=== PATIENT | male | born 1940 | race Caucasian/White ===

== ENCOUNTER 2017-12-14 03:32 | Emergency (ER) | payer MEDICARE ==
[~2017-12-14] VITALS: Ht 175.3 cm; Wt 97.1 kg
[2017-12-14 03:38] VITALS: BP_SYST 141
[2017-12-14 04:32] LABS: BASOPHILS % (AUTO) 0.6 % (0.0-2.0); EOSINOPHILS # (AUTO) 0.3 K/uL (0.0-0.4); EOSINOPHILS % (AUTO) 3.8 % (0.0-4.0); HEMATOCRIT 30.4 % (36-54); HEMOGLOBIN 10.1 g/dL (14.0-18.0); LYMPHOCYTES # (AUTO) 1.2 K/uL (1.0-5.5); LYMPHOCYTES % (AUTO) 15.5 % (20.5-51.5); MEAN CORPUSCULAR HEMOGLOBIN 30 pg (27-31); MEAN CORPUSCULAR HGB CONC 33 % (32-36); MEAN CORPUSCULAR VOLUME 91 fL (79.0-98.0); MONOCYTES # (AUTO) 0.9 K/uL (0.0-1.0); MONOCYTES % (AUTO) 12.3 % (1.7-9.3); NEUTROPHILS # (AUTO) 5.1 K/uL (1.8-7.7); NEUTROPHILS % (AUTO) 67.8 % (40.0-70.0); PLATELET COUNT (AUTO) 196 K/uL (130-430); RED BLOOD CELL COUNT(AUTO) 3.36 MIL/uL (4.2-6.2); RED CELL DISTRIBUTION WIDTH 13.6 % (9.0-15.0); WHITE BLOOD COUNT (AUTO) 7.5 K/uL (4.8-10.8)
[2017-12-14 04:42] LABS: ANION GAP 7 (5-15); CALCIUM 8.4 mg/dL (8.4-11.0); CHLORIDE 103 mmol/L (98-107); CREATININE 0.71 mg/dL (0.55-1.30); GLUCOSE 107 mg/dL (70-99); POTASSIUM 3.5 mmol/L (3.5-5.1); SODIUM SERUM 137 mmol/L (136-145); UREA NITROGEN, BLOOD 20 mg/dL (8-21)
[2017-12-14 04:47] LABS: ALANINE AMINOTRANSFERASE 20 U/L (12-78); ALBUMIN 2.9 g/dL (3.4-4.8); ASPARTATE AMINOTRANSFERASE 19 U/L (10-37); TOTAL BILIRUBIN 0.5 mg/dL (0.0-1.0)
[2017-12-14 05:11] LABS: PROTHROMBIN TIME 9.7 SECS (9.5-12.5)
[2017-12-14 05:14] LABS: BILIRUBIN,URINE NEGATIVE (NEGATIVE); BLOOD, URINE TRACE (NEGATIVE); CLARITY/URINE CLEAR (CLEAR); COLOR,URINE YELLOW (YELLOW); GLUCOSE,URINE NEGATIVE (NEGATIVE); KETONES,URINE NEGATIVE (NEGATIVE); LEUKOCYTE ESTERASE ,URINE NEGATIVE (NEGATIVE); NITRITE, URINE NEGATIVE (NEGATIVE); PROTEIN URINE NEGATIVE (NEGATIVE)
[2017-12-14 05:36] LABS: BACTERIA,URINE RARE /HPF (None Seen); MUCUS,URINE None Seen /LPF (None Seen); WBC,URINE 0-3 /HPF (0-3); YEAST,URINE None Seen /HPF (None Seen)
[2017-12-14 05:48] VITALS: BP_SYST 141
== END 2017-12-14 05:48 | disposition short-term general hospital (02) ==
LOC: SED 03:32
DX: G89.18 Other acute postprocedural pain (principal); M96.831 Postprocedural hemorrhage of a musculoskeletal structure following other procedure; I10 Essential (primary) hypertension; Z86.79 Personal history of other diseases of the circulatory system; Z96.652 Presence of left artificial knee joint
CPT/HCPCS: 36415; 80053; 81000-TC; 85025; 85610-TC; 85730-TC; 99285

== ENCOUNTER 2018-09-13 07:51 | Emergency (ER) | payer MEDICARE ==
[~2018-09-13] VITALS: Ht 175.3 cm; Wt 97.1 kg
[2018-09-13 07:57] VITALS: BP_SYST 157
[2018-09-13] MEDS ORDERED: NACL 0.9% 1,000 ML IV ONE (08:30)
[2018-09-13 08:45] LABS: BASOPHILS # (AUTO) 0.1 K/uL (0.0-0.2); BASOPHILS % (AUTO) 0.4 % (0.0-2.0); HEMATOCRIT 38.4 % (36-54); HEMOGLOBIN 12.9 g/dL (14.0-18.0); LYMPHOCYTES # (AUTO) 0.5 K/uL (1.0-5.5); LYMPHOCYTES % (AUTO) 3.3 % (20.5-51.5); MEAN CORPUSCULAR HEMOGLOBIN 30 pg (27-31); MEAN CORPUSCULAR HGB CONC 34 % (32-36); MEAN CORPUSCULAR VOLUME 90 fL (79.0-98.0); NEUTROPHILS # (AUTO) 14.8 K/uL (1.8-7.7); NEUTROPHILS % (AUTO) 90.3 % (40.0-70.0); PLATELET COUNT (AUTO) 178 K/uL (130-430); RED BLOOD CELL COUNT(AUTO) 4.25 MIL/uL (4.2-6.2); RED CELL DISTRIBUTION WIDTH 14.6 % (9.0-15.0); WHITE BLOOD COUNT (AUTO) 16.4 K/uL (4.8-10.8)
[2018-09-13 08:57] LABS: ANION GAP 9 (5-15); CALCIUM 8.9 mg/dL (8.4-11.0); CHLORIDE 100 mmol/L (98-107); CREATININE 0.81 mg/dL (0.55-1.30); GLUCOSE 113 mg/dL (70-99); POTASSIUM 4.1 mmol/L (3.5-5.1); SODIUM SERUM 135 mmol/L (136-145); UREA NITROGEN, BLOOD 17 mg/dL (8-21)
[2018-09-13 09:03] LABS: ALANINE AMINOTRANSFERASE 25 U/L (12-78); ALBUMIN 3.2 g/dL (3.4-4.8); ASPARTATE AMINOTRANSFERASE 29 U/L (10-37); TOTAL BILIRUBIN 1.5 mg/dL (0.0-1.0)
[2018-09-13 09:16] LABS: INR 1.1 (0.80-1.20); PROTHROMBIN TIME 11.1 SECS (9.5-12.5)
[2018-09-13] MEDS ORDERED: IOHEXOL 350 mgI/mL, 150 ML INFUS..BTL IV ONE (09:21)
[2018-09-13] MEDS ORDERED: cefTRIAXone 1 GM in D5W 50 ML IV ONE (11:00)
[2018-09-13] MEDS ORDERED: AZITHROMYCIN 500 MG in NS 250 ML IV ONE (11:00)
[2018-09-13] MEDS ORDERED: AZITHROMYCIN 500 MG/VIAL (ZITHROMAX) IV ONE (11:15)
[2018-09-13] MEDS ORDERED: cefTRIAXone 1 GM VIAL ONE (11:16)
[2018-09-13] MEDS ORDERED: OMEP20CA10 PO (11:47)
[2018-09-13] MEDS ORDERED: TYC3 PO (11:47)
[2018-09-13] MEDS ORDERED: NITSL SL (11:47)
[2018-09-13] MEDS ORDERED: ASPI-1153 PO (11:47)
[2018-09-13] MEDS ORDERED: DICL100G19 TP (11:47)
[2018-09-13] MEDS ORDERED: ALBMDI INH (11:47)
[2018-09-13] MEDS ORDERED: PRO10 PO (11:47)
[2018-09-13] MEDS ORDERED: FLUT16SP16 NS (11:47)
[2018-09-13] MEDS ORDERED: METO25TA6 PO (11:47)
[2018-09-13] MEDS ORDERED: HYT1 PO (11:47)
[2018-09-13] MEDS ORDERED: LIP80 PO (11:47)
[2018-09-13] MEDS ORDERED: IBUP-1970 PO (11:47)
[2018-09-13] MEDS ORDERED: ACETAMINOPHEN 500 MG TABLET PO ONE (12:15)
[2018-09-13 13:20] VITALS: BP_SYST 158
== END 2018-09-13 13:20 | disposition short-term general hospital (02) ==
LOC: SED 07:51
DX: J18.9 Pneumonia, unspecified organism (principal); I10 Essential (primary) hypertension; Z86.79 Personal history of other diseases of the circulatory system
CPT/HCPCS: 36415; 71045; 71275; 80053; 83605; 84484; 85025; 85610; 85730; 87040; 87086; 93005; 96365; 96368; 99285; J0456; J0696; J7030; Q9967

== ENCOUNTER 2020-12-05 09:44 | Emergency (ER) | payer MEDICARE ==
[~2020-12-05] VITALS: Ht 175.3 cm; Wt 97.1 kg
[~2020-12-05 09:44] MED LIST: ALBMDI INH; ASPI-1393 PO; DICL100G19 TP; FLUT16SP16 NS; HYT1 PO; IBUP-1970 PO; LIP80 PO; METO25TA6 PO; NITSL SL; OMEP20CA15 PO; PRO10 PO; TYC3 PO
[2020-12-05 09:45] VITALS: BP_SYST 150
[2020-12-05] MEDS ORDERED: IBUPROFEN 600 MG TABLET PO ONE (10:15)
[2020-12-05 11:19] VITALS: BP_SYST 129
== END 2020-12-05 11:22 | disposition home or self-care (01) ==
LOC: SED 09:44
DX: S60.222A Contusion of left hand, initial encounter (principal); S40.021A Contusion of right upper arm, initial encounter; I10 Essential (primary) hypertension; Z79.82 Long term (current) use of aspirin; Z79.899 Other long term (current) drug therapy; Z88.8 Allergy status to other drugs, medicaments and biological substances; W18.39XA Other fall on same level, initial encounter; Y93.89 Activity, other specified; Y92.89 Other specified places as the place of occurrence of the external cause; Y99.8 Other external cause status
CPT/HCPCS: 73060-TC; 99284